=== PATIENT | female | born 1930 | race African-American/Black ===

== ENCOUNTER 2017-04-27 08:25 | Emergency (ER) | payer OTHER ==
[~2017-04-27] VITALS: Ht 162.6 cm; Wt 85.0 kg
[2017-04-27] MEDS ORDERED: TRAMADOL 50MG TABLET PO ONE (10:45)
[2017-04-27 11:37] LABS: HEMATOCRIT. 32.5 % (36.0-48.0); MEAN CORPUSCULAR HEMOGLOBIN 30.1 pg (28.0-32.0); MEAN CORPUSCULAR VOLUME 89.2 fL (81.0-99.0); MEAN PLATELET VOLUME 8.5 fl (7.4-10.4); PLATELET 321 x1000/uL (130-400); RED BLOOD CELL COUNT 3.65 mill/uL (4.2-5.4); RED CELL DISTRIBUTION WIDTH 13.5 % (11.6-14.6)
[2017-04-27 11:52] LABS: CARBON DIOXIDE 28 mEq/L (21-32); CHLORIDE 98 mEq/L (98-107)
[2017-04-27 12:11] LABS: CLARITY URINE CLOUDY (CLEAR); COLOR URINE DARK YELLOW (YELLOW); GLUCOSE URINE TRACE (NEGATIVE); KETONES URINE TRACE (NEGATIVE); LEUKOCYTE ESTERASE URINE 1+ (NEGATIVE); NITRITE URINE NEGATIVE (NEGATIVE); OCCULT BLOOD URINE 1+ (NEGATIVE); PROTEIN URINE 2+ (NEGATIVE); SPECIFIC GRAVITY URINE 1.029 (1.005-1.030)
[2017-04-27 12:16] LABS: PLATELET ESTIMATE NORMAL
[2017-04-27] MEDS ORDERED: IOHEXOL-300 100 ML BOTTLE ONE (18:16)
[2017-04-27] MEDS ORDERED: SODIUM CHLORIDE 0.9% 1,000 ML IV ONE (18:32)
[2017-04-27] MEDS ORDERED: KETOROLAC 30MG/ML VIAL IV STA (18:32)
[2017-04-27] MEDS ORDERED: CEFTRIAXONE 1 G PREMIX 50 ML IV ONE (19:00)
[2017-04-27] MEDS ORDERED: AMLODIPINE 5MG TABLET PO ONE (19:45)
[2017-04-27 20:53] VITALS: BP 153/90
== END 2017-04-27 20:54 | disposition short-term general hospital (02) ==
LOC: ER 08:29
DX: R10.9 Unspecified abdominal pain (principal); R53.1 Weakness; E11.9 Type 2 diabetes mellitus without complications; I10 Essential (primary) hypertension; F03.90 Unspecified dementia, unspecified severity, without behavioral disturbance, psychotic disturbance, mood disturbance, and anxiety
CPT/HCPCS: 36415; 74177; 80053; 81001; 85025; 96361; 96365; 96375; 99285; J0696; J1885; J7030; Q9967

== ENCOUNTER 2017-06-25 11:32 | Emergency (ER) | payer OTHER ==
[~2017-06-25] VITALS: Ht 162.6 cm; Wt 75.0 kg
[2017-06-25 11:32] VITALS: BP 0/0
[~2017-06-25 11:32] MED LIST: AMIODARONE HCL 50MG/ML 3ML VIAL IV ONE; CALCIUM CHLORIDE 1GM/10ML SYR IV ONE; DEXTROSE 50% WATER 50ML SYRINGE IV ONE; EPINEPHRINE 0.1MG/ML (1:10,000) 10ML SYR ONE; SODIUM BICARBONATE 7.5% 0.9 MEQ/ML 50ML SYR IV ONE
[2017-06-25] MEDS ORDERED: EPINEPHRINE 0.1MG/ML (1:10,000) 10ML SYR ONE (11:51)
== END 2017-06-25 11:56 | disposition expired ==
LOC: ER 11:34
DX: I46.9 Cardiac arrest, cause unspecified (principal); I47.2 Ventricular tachycardia; I48.91 Unspecified atrial fibrillation; I44.0 Atrioventricular block, first degree; R10.13 Epigastric pain; I10 Essential (primary) hypertension; E11.9 Type 2 diabetes mellitus without complications; F03.90 Unspecified dementia, unspecified severity, without behavioral disturbance, psychotic disturbance, mood disturbance, and anxiety; Z85.9 Personal history of malignant neoplasm, unspecified; Z87.448 Personal history of other diseases of urinary system
CPT/HCPCS: 31500; 82962; 92950; 93005; 99291; J0171; J0282; J3490